=== PATIENT | female | born 1975 | race Caucasian/White ===

== ENCOUNTER → 2018-07-17 | Outpatient (CLI) | payer BC ==
[~2018-07-17] MED LIST: CFR250T; HYDR-3714 PO; HYDR-707; LEVO250T7 PO; SULF1TAB23
--- NOTE | 2018-07-17 12:07 | Diagnostic Imaging Report ---
INDICATION: Abdominal pain TECHNIQUE: Multiple real-time major scale sonographic images of the abdomen. CORRELATION STUDY: None FINDINGS: LIVER: Normal echotexture within the visualized portions of the liver. There is normal, hepatopedal direction of flow within the main portal vein. Liver length 15 cm. GALLBLADDER: No shadowing gallstones or pericholecystic fluid. Borderline gallbladder wall thickness. COMMON BILE DUCT: Not able to be visualized, obscured however, no findings to suggest overt bile duct dilatation.. PANCREAS: Largely obscured. SPLEEN: Unremarkable. ABDOMINAL AORTA: Largely obscured. INFERIOR VENA CAVA: Not visualized. RIGHT KIDNEY: 11.2 cm. Unremarkable. LEFT KIDNEY: 11.2 cm. Unremarkable. OTHER: None. IMPRESSION: 1. Overall somewhat limited abdominal ultrasound evaluation particularly of the midline structures. Definitive acute abnormality is visualized. Anatomical structures do not appear to be suggested. Dictated by: Dictated on workstation # [id number]
== END ==
LOC: RAD 08:05
PROVIDERS: ATTEND Nurse Practitioner Family
DX: R10.30 Lower abdominal pain, unspecified (principal)
CPT/HCPCS: 76700

== ENCOUNTER → 2018-07-24 | Outpatient (CLI) | payer BC ==
--- NOTE | 2018-07-24 12:50 | Diagnostic Imaging Report ---
CLINICAL INDICATION: Patient with recent surgery with removal of left ovary. Patient has lower abdominal pain. EXAMINATION: Transvaginal ultrasound of the pelvis. COMPARISON: None. FINDINGS AND IMPRESSION: 1: There are postop changes consistent with hysterectomy and removal of ovary. 2: There is a 4.3 cm x 5.0 cm x 4.1 cm cystic mass which is just right of midline may be in the right adnexa region. This cystic lesion is nonspecific. The right ovary is not definitively seen on this exam. 3: There is no significant abnormality in the left adnexa region. Dictated on workstation # [id number]
--- NOTE | 2018-07-24 17:58 | Diagnostic Imaging Report ---
INDICATION: Pelvic pain. Pelvic sonography performed with transabdominal and transvaginal views. The uterus measures 7.8 x 4.3 x 4.4 cm. Endometrium measures 1.2 cm in thickness. There is no overt uterine mass. The right ovary 2.8 x 3.4 x 2.5 cm and contains a simple cyst measuring 2.0 x 1.5 x 1.8 cm. The right ovary does contain color flow. The left ovary is not visualized. IMPRESSION: Normal-appearing uterus. Right ovary contains a 2.0 cm cyst. Left ovary is not visualized. There is no free fluid. Dictated by: Dictated on workstation # [id number]
== END ==
LOC: RAD 14:56
PROVIDERS: ATTEND Nurse Practitioner Family
DX: N83.201 Unspecified ovarian cyst, right side (principal)
CPT/HCPCS: 76830; 76856

== ENCOUNTER → 2018-08-11 | Outpatient (CLI) | payer BC ==
[~2018-08-11] MED LIST changes: +IOHEXOL 350 MG/ML 100 ML (OMNIPAQUE 350) VIAL IV ONE; +NS 250 ML (IVPB) BAG IV ONE
--- NOTE | 2018-08-11 13:15 | Diagnostic Imaging Report ---
PROCEDURE: CT abdomen and pelvis with contrast. TECHNIQUE: Multiple contiguous axial images were obtained through the abdomen and pelvis after administration of intravenous contrast. DATE: August 11, 2018. COMPARISON: None. INDICATION: 43-year-old female, lower abdominal pain. FINDINGS: There is a cystic focus in the right middle lobe which may potentially reflect a pneumatocele. This is incompletely imaged. There is no identified airspace consolidation in the visualized portions of the lungs. The heart is not enlarged. There is no pericardial effusion. The liver is normal in size and contour. There is no identified liver lesion. The main, right, and left portal veins are patent. The gallbladder is unremarkable. There is no intrahepatic or extrahepatic bile duct dilation. The main pancreatic duct is not abnormally dilated. Unremarkable appearance of the pancreatic parenchyma. The spleen is normal in size. The adrenal glands are unremarkable. There is a low-attenuation exophytic lesion arising from the right kidney on axial image 47 measuring 11 mm in size with internal attenuation of -14 Hounsfield units, compatible with a benign cyst. Additional evaluation of the renal parenchyma is unremarkable. The urinary collecting systems are not distended. There is no identified renal or ureteral stone. The urinary bladder is unremarkable. There is a probable left ovarian cyst or follicle on axial image 71 measuring up to maximally 2.2 cm in size. There is diverticulosis without evidence of acute diverticulitis. There is fatty wall thickening of the transverse colon and right colon, compatible with changes of chronic colitis. There is also fatty wall thickening of segments of distal small bowel, compatible with chronic enteritis. This includes the terminal ileum. There is no identified evidence of an active enteritis or colitis. There is no free intraperitoneal air. There is no drainable fluid collection. There is no free pelvic fluid. There are atherosclerotic calcifications noted. There is no identified abnormally enlarged lymph node within the abdomen or pelvis which specifically meets CT size criteria for adenopathy. There are disc and facet degenerative changes of the spine. There is no identified acute bony abnormality. The sacroiliac joints are unremarkable in appearance. IMPRESSION: 1. Fatty wall thickening of the transverse colon, right colon, and distal small bowel including the terminal ileum which likely reflect changes of chronic enteritis and colitis. Crohn's disease would be a differential diagnostic consideration. No evidence of active enteritis or colitis. 2. No identified acute abnormality within the abdomen or pelvis. 3. Atherosclerotic calcifications are noted. Dictated by: Dictated on workstation # [id number]
== END ==
LOC: RAD 10:10
PROVIDERS: ATTEND Nurse Practitioner Family
DX: K63.89 Other specified diseases of intestine (principal); I70.90 Unspecified atherosclerosis; R93.5 Abnormal findings on diagnostic imaging of other abdominal regions, including retroperitoneum
CPT/HCPCS: 74177

== ENCOUNTER 2018-11-17 06:26 | Outpatient (CLI) | payer BC ==
[~2018-11-17] VITALS: Ht 162.6 cm; Wt 110.2 kg
[~2018-11-17 06:26] MED LIST changes: -IOHEXOL 350 MG/ML 100 ML (OMNIPAQUE 350) VIAL IV ONE; -NS 250 ML (IVPB) BAG IV ONE
[2018-11-19] MEDS ORDERED: HYDR-34 PO (10:45)
== END 2018-11-17 12:37 | disposition home or self-care (01) ==
LOC: PREOP 06:26
PROVIDERS: ATTEND Surgery
DX: Z01.818 Encounter for other preprocedural examination (principal)

== ENCOUNTER 2018-11-19 10:03 | Day surgery (SDC) | payer BC ==
[~2018-11-19] VITALS: Ht 162.6 cm; Wt 110.2 kg
[2018-11-19 10:25] VITALS: BP 114/77
[2018-11-19] MEDS ORDERED: FAMOTIDINE 20MG/2ML IV (PEPCID) ONE (10:35)
[2018-11-19] MEDS ORDERED: MIDAZOLAM 2 MG/2 ML (VERSED) VIAL ONE ×3 (10:35→13:45)
[2018-11-19 10:38] LABS: BASOPHILS # (AUTO) 0.1 10^3/uL (0.0-0.1); BASOPHILS % (AUTO) 1 % (0-10); EOSINOPHILS # (AUTO) 0.1 10^3/uL (0.0-0.3); EOSINOPHILS % (AUTO) 1 % (0-10); HEMATOCRIT 41 % (35-52); HEMOGLOBIN 13.8 G/DL (11.5-16.0); LYMPHOCYTES # (AUTO) 2.6 X 10^3 (1.0-4.0); LYMPHOCYTES % (AUTO) 33 % (12-44); MEAN CORPUSCULAR HEMOGLOBIN 28 PG (25-34); MEAN CORPUSCULAR HGB CONC 33 G/DL (32-36); MEAN CORPUSCULAR VOLUME 85 FL (80-99); MEAN PLATELET VOLUME 9.2 FL (7.4-10.4); MONOCYTES # (AUTO) 0.6 X 10^3 (0.0-1.0); MONOCYTES % (AUTO) 7 % (0-12); NEUTROPHILS # (AUTO) 4.8 X 10^3 (1.8-7.8); NEUTROPHILS % (AUTO) 59 % (42-75); PLATELET COUNT 353 10^3/uL (130-400); WHITE BLOOD COUNT 8.1 10^3/uL (4.3-11.0)
--- NOTE | 2018-11-19 10:40 | NUR ---
LANNY AND VERSED GIVEN PER Eitan HILL CRNA.
--- NOTE | 2018-11-19 10:43 | Progress Note-Pre Operative ---
Pre-Operative Progress Note H&P Reviewed The H&P was reviewed, patient examined and no changes noted. Date Seen by Provider: Nov 19, 2018 Time Seen by Provider: 10:40 Date H&P Reviewed: Nov 19, 2018 Time H&P Reviewed: 10:40 Pre-Operative Diagnosis: symptomatic biliary dyskinesia LIZET SERNA MD Nov 19, 2018 10:43
[2018-11-19] MEDS ORDERED: ACETAMINOPHEN 325 MG TABLET PO PRN (10:45)
[2018-11-19] MEDS ORDERED: oxyCODONE/APAP 5/325MG (PERCOCET 5) TABLET PO PRN (10:45)
[2018-11-19] MEDS ORDERED: HYDR-34 PO (10:45)
[2018-11-19] MEDS ORDERED: morphine INJ 10 MG/ML 1ML (SYR OR VIAL) IVP PRN (10:45)
[2018-11-19] MEDS ORDERED: ONDANSETRON 4 MG/2 ML (SDV) Z0FRAN IVP PRN ×2 (10:45→15:15)
--- NOTE | 2018-11-19 10:45 | Discharge Inst-Surgical ---
D/C Lap Instructions-DAPHNE New, Converted, or Re-Newed RX: RX on Chart Follow Up Appt in 2 weeks Activity as tolerated No driving for 24 hours No driving while on pain medications Incentive Spirometry use every 2 hours while awake Regular Diet Symptoms to Report: Fever over 101 degree F, Nausea/Vomiting Infection Signs and Symptoms to report: Increased redness, Foul odor of wound, Increased drainage Bathing instructions: May shower Operative Area Clean/Dry; Keep incision clean/dry If any problems/questions: Contact your physician or go to Emergency Room LIZET SERNA MD Nov 19, 2018 10:45
[2018-11-19] MEDS ORDERED: ceFAZolin 2 GM IV Premixed 50 ML IV ONE (11:00)
[2018-11-19] MEDS: LACTATED RINGERS 1,000 ML IV PRN ×3 (11:09→15:05)
[2018-11-19] MEDS ORDERED: MIDAZOLAM 2 MG/2 ML (VERSED) VIAL IV ONE (11:15)
[2018-11-19] MEDS ORDERED: FAMOTIDINE 20MG/2ML IV (PEPCID) IV ONE (11:15)
--- NOTE | 2018-11-19 12:30 | NUR ---
PATIENT VERY ANGRY AND DISGRUNTLED ABOUT WAITING FOR SURGERY FOR SO LONG. Esmer REED RN, AND Kee FALCON RN, IN THE ROOM TO TALK WITH THE PATIENT.
[2018-11-19 13:31] LABS: AMPHETAMINE SCREEN, URINE NEGATIVE (NEGATIVE); BARBITURATE SCREEN URINE NEGATIVE (NEGATIVE); BENZODIAZEPINES SCREEN URINE NEGATIVE (NEGATIVE); CANNABINOID SCREEN, URINE POSITIVE (NEGATIVE); COCAINE SCREEN URINE NEGATIVE (NEGATIVE); METHADONE STAT NEGATIVE (NEGATIVE); METHAMPHETAMINE SCREEN URINE S NEGATIVE (NEGATIVE); OPIATE SCREEN URINE NEGATIVE (NEGATIVE); OXYCODONE STAT NEGATIVE (NEGATIVE); PROPOXYPHENE STAT NEGATIVE (NEGATIVE); TRICYCLIC ANTIDEPRESSANTS SCRE NEGATIVE (NEGATIVE)
--- NOTE | 2018-11-19 13:40 | NUR ---
VERSED 2 MG IV GIVEN PER iEtan HILL CRNA.
[2018-11-19] MEDS ORDERED: BUP/EPI 0.5% 1:200,000 (SENSORCAINE) 30 ML VIAL ONE (13:43)
[2018-11-19] MEDS ORDERED: proPOfol 200 MG/20 ML (DIPRIVAN) VIAL IV ONE (13:44)
[2018-11-19] MEDS ORDERED: ROCURONIUM 10 MG/ML 5 ML SYRINGE IV ONE (13:44)
[2018-11-19] MEDS ORDERED: ONDANSETRON 4 MG/2 ML (SDV) Z0FRAN ONE (13:44)
[2018-11-19] MEDS ORDERED: fentaNYL INJECTION 100 MCG/2 ML AMP ONE ×2 (13:45→15:35)
[2018-11-19] MEDS ORDERED: SEVOFLURANE (ULTANE) 15 ML INHAL SOLN ONE ×5 (14:07→15:38)
[2018-11-19] MEDS ORDERED: DEXAMETHASONE 10 MG/ML (DECADRON) 1 ML VIAL ONE (14:08)
[2018-11-19] MEDS ORDERED: ceFAZolin 2 GM IV Premixed 50 ML ONE (14:17)
[2018-11-19] MEDS ORDERED: SUCCINYLCHOLINE INJ 100 MG/5 ML SYR ONE (15:05)
[2018-11-19] MEDS ORDERED: MEPERIDINE (DEMEROL) INJ 50 MG/ML IVP ONE (15:15)
[2018-11-19] MEDS ORDERED: morphine INJ 10 MG/ML 1ML (SYR OR VIAL) IVP ONE (15:15)
[2018-11-19] MEDS ORDERED: NEOSTIGMINE 1 MG/ML 5 ML SYRINGE ONE (15:19)
[2018-11-19] MEDS ORDERED: GLYCOPYRROLATE 0.2 MG/ML (ROBINUL) 2 ML VIAL ONE ×2 (15:19→15:30)
--- NOTE | 2018-11-19 15:50 | Progress Note-Post Operative ---
Post-Operative Progess Note Surgeon (s)/Development Lead (s) Surgeon LIZET SERNA MD Development Lead: loco willis NEON TECHNICIAN Pre-Operative Diagnosis symptomatic biliary dyskinesia Post-Operative Diagnosis chronic calculous cholecystitis. Procedure & Operative Findings Date of Procedure 11/19/18 Procedure Performed/Findings laparoscopic cholecystectomy. Anesthesia Type GET Estimated Blood Loss Estimated blood loss (mL): minimal Specimens/Packing Specimens Removed gallbladder LIZET SERNA MD Nov 19, 2018 15:50
[2018-11-19 16:50] VITALS: BP 103/53
[2018-11-19 17:20] VITALS: BP 132/91
[2018-11-19] MEDS ORDERED: ONDA4TAB11 PO (17:31)
[2018-11-19 17:50] VITALS: BP 131/80
[2018-11-19 17:55] VITALS: BP 131/80
--- NOTE | 2018-11-20 00:37 | OPERATIVE REPORT ---
DATE OF SERVICE: 11/19/2018 ATTENDING PRIMARY CARE PHYSICIAN: Dr. Wray. PREOPERATIVE DIAGNOSIS: Symptomatic biliary dyskinesia. POSTOPERATIVE DIAGNOSIS: Chronic calculous cholecystitis. PROCEDURE: Laparoscopic cholecystectomy. SURGEON: Lizet Serna MD PARTITION MAKING MACHINE OPERATOR: Dylon Britton APRN ANESTHESIA: General endotracheal. ESTIMATED BLOOD LOSS: Minimal. FINDINGS: Moderate gallbladder wall inflammation with multiple small gallstones. DISPOSITION: The patient tolerated the procedure well. INDICATIONS: The patient is a 43-year-old female who has had pain in the right upper abdominal quadrant for the past year and a half as well as nausea and vomiting. She reports that these episodes have become more frequent as well as more severe in nature. She reports that she has also had epigastric pain and reflux and has had worsening issues with the spicy, greasy as well as acidic foods. She was seen by gastroenterology where an EGD and colonoscopy were performed. She does report a CT scan was also performed during this timeframe and that there was some form of inflammation identified. The EGD showed a mild gastritis as well as a sigmoid diverticulosis with no diverticulitis. There was a small transverse colonic polyp, which came back as a tubular adenoma. She then was sent for HIDA scan, which did come back with an ejection fraction of 9.6 consistent with a biliary dyskinesia. DESCRIPTION OF PROCEDURE: The patient was brought to the operating room, laid supine on the table. After adequate IV pain and sedating medications and general endotracheal intubation, the abdomen was prepped and draped in standard surgical fashion. A 0.5% Marcaine with epinephrine was then used to anesthetize the overlying skin in the left upper abdominal quadrant. A small transverse skin incision made using a 15 blade. An 0 silk suture was applied to the medial aspect of the incision for retraction and a Veress needle inserted with a low opening pressure of 0 mmHg and the abdomen was then insufflated to 15 mmHg pressure. The Veress needle removed and a 5 mm Xcel trocar placed followed by a 5 mm 45-degree angle laparoscope visualizing the peritoneal cavity. A 4-quadrant abdominal exploration was performed. There was a mild hepatomegaly. There was a dilated gallbladder with mild to moderate gallbladder wall thickening. No other abnormalities were detected. Under direct visualization, we then proceed to place a supraumbilical 10 mm port after the skin and peritoneal lining were anesthetized using 0.5% Marcaine with epinephrine and a transverse skin incision made using a 15 blade. In a similar manner, a right upper abdominal quadrant 5 mm port was placed. The patient was then placed in reverse Trendelenburg position as well as plane right side up, left side down. The fundus of the gallbladder was then retracted anteriorly and superiorly. The hepatoduodenal ligament was then opened using electrocautery as well as blunt dissection and hook instrument. The entire critical view of safety was identified including the triangle of Calot as well as the cystic duct and artery as the only two structures going into the gallbladder as well as a cystic plate behind the proximal gallbladder. A timeout was then taken. The cystic duct and artery were then clipped proximally and distally and cut with EndoShears. The gallbladder was then dissected off of the liver bed using electrocautery on the hook instrument with visualization of good hemostasis as well as no leaking ducts of Luschka. The gallbladder was removed through the 10 mm port site using an EndoCatch bag. The 10 mm port site fascia and peritoneum were then closed under direct visualization using Ellis-Hannah device and 0 Vicryl suture. The abdomen was desufflated and remaining ports removed. All skin incisions were closed using 4-0 Monocryl running subcuticular sutures. Wounds were then cleaned and covered with Dermabond. The patient tolerated the procedure well. We will start IV and oral pain medication as well as a clear liquid diet. Once she is tolerating clears, has good pain control with oral pain medication and is ambulating well, we will discharge her home. She will be instructed to do no heavy lifting or exertion for the next two weeks. Job ID: [id number] DocumentID: [id number] Dictated Date: 11/19/2018 15:48:46 Mail Service Coordinator Date: 11/20/2018 00:37:03 Dictated By: LIZET SERNA MD
== END 2018-11-19 17:55 | disposition home or self-care (01) ==
LOC: SDC 10:03
PROVIDERS: ATTEND Surgery
DX: K81.1 Chronic cholecystitis (principal); K82.8 Other specified diseases of gallbladder; K21.9 Gastro-esophageal reflux disease without esophagitis; F17.210 Nicotine dependence, cigarettes, uncomplicated; E66.01 Morbid (severe) obesity due to excess calories; Z68.41 Body mass index [BMI] 40.0-44.9, adult
CPT/HCPCS: 36415; 80306; 84703; 85025; 87081; 94664